=== PATIENT | male | born 1950 | race Caucasian/White ===

== ENCOUNTER 2017-06-22 18:15 | Emergency (ER) | payer MEDICARE ==
[2017-06-22] MEDS ORDERED: Diphtheria,Pertussis(Acell),Tetanus Vaccine 0.5 ML Syringe IM ONE (18:23)
[2017-06-22] MEDS ORDERED: Lidocaine 1% with EPINEPHrine 1:100,000 20 ML MDV INJECT ONE (18:23)
--- NOTE | 2017-06-22 18:25 | EDM.PDOC ---
ED HPI GENERAL MEDICAL PROBLEM - General Chief Complaint: Head Injury Stated Complaint: head laceration Time Seen by Provider: 06/22/17 18:23 Source of Information: Reports: Patient History Limitations: Reports: No Limitations - History of Present Illness INITIAL COMMENTS - FREE TEXT/NARRATIVE: This patient is a 67 year old male that presents to the ER. Patient reports he was outside moving a gate when an suzy statue hit him in the front of the head. Patient reports this occurred about 2:30pm today. He reports he was not going to come in, but the wound kept bleeding and he thinks he needs the wound closed. Patient is alert and oriented. Denies any other injury. Patient denies any pain. Patient denies loc, n, v, vision changes, neck pain, headache. Will not CT at this time. Patient not on blood thinners. Stable. Onset: Today Onset Date: 06/22/17 Onset Time: 14:30 Location: Reports: Head Improves with: Reports: None Worsens with: Reports: None Associated Symptoms: Reports: No Other Symptoms. Denies: Confusion, Chest Pain , Cough, cough w sputum, Diaphoresis, Fever/Chills, Headaches, Loss of Appetite , Malaise, Nausea/Vomiting, Rash, Seizure, Shortness of Breath, Syncope, Weakness - Related Data Allergies Allergy/AdvReac Type Severity Reaction Status Date / Time No Known Allergies Allergy Verified 06/22/17 18:21 Home Meds: Home Meds Insulin Degludec [Tresiba Flextouch U-100] 15 - 23 units SUBCUT BEDTIME [History] atorvaSTATin Calcium [Atorvastatin Calcium] 40 mg PO DAILY 06/22/17 [History] metFORMIN HCl [Metformin HCl] 1,000 mg PO BID 06/22/17 [History] ED ROS GENERAL - Review of Systems Review Of Systems: See Below Constitutional: Reports: No Symptoms HEENT: Reports: No Symptoms Respiratory: Reports: No Symptoms Cardiovascular: Reports: No Symptoms Endocrine: Reports: No Symptoms GI/Abdominal: Reports: No Symptoms : Reports: No Symptoms Musculoskeletal: Reports: No Symptoms Skin: Reports: Wound (right frontal head) Neurological: Reports: No Symptoms Psychiatric: Reports: No Symptoms Hematologic/Lymphatic: Reports: No Symptoms Immunologic: Reports: No Symptoms ED EXAM, HEAD INJURY - Physical Exam Exam: See Below Exam Limited By: No Limitations General Appearance: Alert, WD/WN, No Apparent Distress Head: Normocephalic, Scalp Lacerations. No: Scalp Swelling, Scalp Abrasions, Scalp Ecchymosis, Scalp Hematoma, Scalp Tenderness, Active Bleeding, Urias's Sign, Flap, Facial Abrasions, Facial Ecchymosis, Facial Lacerations, Facial Swelling, Sinus Tenderness, Facial Tenderness, Raccoon Eyes Nexus Criteria: No: Posterior, Midline Cervical Tenderness, Evidence of Intoxication, Altered Level of Consciousness, Focal Neurological Deficit, Painful Distraction Injuries Eyes: Bilateral Eye: EOMI, Normal Inspection, PERRL Ears: Normal External Exam, Normal Canal, Hearing Grossly Normal, Normal TMs Nose: Normal Inspection, Normal Mucousa, No Blood Throat/Mouth: Normal Inspection, Normal Lips, Normal Teeth, Normal Gums, Normal Oropharynx, Normal Voice, No Airway Compromise Neck: Non-Tender, Full Range of Motion, Normal Alignment, Normal Inspection Respiratory: No Respiratory Distress, Lungs Clear, Normal Breath Sounds, No Accessory Muscle Use Cardiovascular: Normal Peripheral Pulses, Regular Rate, Rhythm, No Edema, No Gallop, No JVD, No Murmur, No Rub Back Exam: Normal Inspection, Full Range of Motion. No: Muscle Spasm, Paraspinal Tenderness, Vertebral Tenderness Extremities: Normal Inspection, Normal Range of Motion, Non-Tender, No Pedal Edema, Normal Capillary Refill Neurologic: batter depositor II-XII nml As Tested, No Motor/Sensory Deficits, Alert, Normal Mood/Affect, Oriented x 3 Skin: Normal Color, Warm/Dry - [place] Coma Score Best Eye Response ([place]): (4) Open Spontaneously Best Verbal Response ([place]): (5) Oriented Best Motor Response (Ajay): (6) Obeys Commands ED LACERATION/WOUND & ANNIE PROC - Laceration/Wound Repair Right Midline Head Appearance: Superficial, Clean Distal NVT: Neuro & Vascular Intact, No Tendon Injury Anesthetic Type: Local Local Anesthesia - Lidocaine (Xylocaine): 1% with EPI Local Anesthetic Volume: 2cc Skin Prep: Chlorhexidine (Hibiciens) Exploration/Debridement/Repair: Wound Explored, In a Bloodless Field, Explored to Base, No Foreign Material Found Closed with: [place] # of Sutures: 6 ([place]) Tetanus Status Addressed: Yes Complications: No Course - Vital Signs Last Recorded V/S: Last Vital Signs Temp 95.7 F 06/22/17 18:18 Pulse 53 L 06/22/17 18:18 Resp 16 06/22/17 18:18 BP 134/72 06/22/17 18:18 Pulse Ox 99 06/22/17 18:18 - Orders/Labs/Meds Orders: Active Orders 24 hr Category Date Time Status Vaccines to be Administered [RC] PER UNIT ROUTINE Care 06/22/17 18:23 Active Meds: Medications Discontinued Medications Generic Name Dose Route Start Last Admin Trade Name Nanette PRN Reason Stop Dose Admin Diphtheria/Tetanus/Acell Pertussis 0.5 ml 06/22/17 18:23 Adacel IM 06/22/17 18:24 .ONCE ONE Lidocaine/Epinephrine 20 ml 06/22/17 18:23 Xylocaine 1% With Epinephrine 1:100,000 INJECT 06/22/17 18:24 ONETIME ONE Departure - Departure Time of Disposition: 18:44 Disposition: Home, Self-Care 01 Condition: Good Clinical Impression: Laceration - Discharge Information Instructions: Laceration Care, Adult, Head Injury, Adult, [id number] Referrals: Kashif Burrell MD [Primary Care Provider] - Forms: ED Department Discharge Additional Instructions: Followup with your primary care provider in 7-10 days for staple removal Return to the ER for worsening of condition or any emergent concerns Wash the area gently with soap and water, rinse, pat dry. Keep clean. - My Orders Last 24 Hours: My Active Orders 06/22/17 18:23 Vaccines to be Administered [RC] PER UNIT ROUTINE - Assessment/Plan Last 24 Hours: My Active Orders 06/22/17 18:23 Vaccines to be Administered [RC] PER UNIT ROUTINE Plan: PLEASE SEE RN NOTE FOR PFSH.
== END 2017-06-22 18:55 | disposition home or self-care (01) ==
LOC: CC.ED 18:15
DX: S01.01XA Laceration without foreign body of scalp, initial encounter (principal); W22.8XXA Striking against or struck by other objects, initial encounter; Z23 Encounter for immunization
CPT/HCPCS: 12002; 90471; 90715; 99282; 99283

== ENCOUNTER 2017-12-24 21:38 | Observation (INO) | payer MEDICARE ==
[2017-12-24] MEDS ORDERED: Ondansetron 4 MG/2 ML SDV IVPUSH STA (21:41)
[2017-12-24] MEDS ORDERED: Lactated Ringers 1,000 ML IV SCH (21:45)
[2017-12-24 22:07] LABS: CHLORIDE,CL 99 mEq/L (98-106); SODIUM,NA 137 mEq/L (136-145)
--- NOTE | 2017-12-24 22:17 | EDM.PDOC ---
ED HPI GENERAL MEDICAL PROBLEM - General Chief Complaint: Gastrointestinal Problem Stated Complaint: stomach pain Time Seen by Provider: 12/24/17 21:45 Source of Information: Reports: Patient History Limitations: Reports: No Limitations - History of Present Illness INITIAL COMMENTS - FREE TEXT/NARRATIVE: Keaton is a 67 yo male who presents to the ER with complaints of stomach pains that started this morning. He states he was just going to leave for [place] and started getting cramps in his stomach. Admits he has had this pain before and it will usually go away on its own. States it will go away typically after he vomits but has been unable to vomit today. Has tried a few times. He states he has a known history of malrotation that was fixed quite a few years ago by Dr. Tomas in [place]. States he underwent an exploratory surgery by Dr. Dvaila in [place] prior to seeing Dr. Tomas. He states he was always told to take milk of magnesia when this happens so patient did so but has not had any relief. He states he had a normal bowel movement today after taking a laxative. He states he had his appendix removed but still has his gallbladder. Location: Reports: Abdomen Quality: Reports: Sharp, Stabbing Associated Symptoms: Reports: Loss of Appetite, Nausea/Vomiting (nausea unable to vomit). Denies: Fever/Chills Abdominal Pain Score (Numeric/FACES): 2 - Related Data Allergies Allergy/AdvReac Type Severity Reaction Status Date / Time No Known Allergies Allergy Verified 12/24/17 21:43 Home Meds: Home Meds Insulin Degludec [Tresiba Flextouch U-100] 15 - 23 units SUBCUT BEDTIME [History] atorvaSTATin Calcium [Atorvastatin Calcium] 40 mg PO DAILY 06/22/17 [History] metFORMIN HCl [Metformin HCl] 1,000 mg PO BID 06/22/17 [History] Past Medical History Cardiovascular History: Reports: High Cholesterol Gastrointestinal History: Reports: Other (See Below) Other Gastrointestinal History: MALROTATION OF INTESTINES Endocrine/Metabolic History: Reports: Diabetes, Type II - Past Surgical History GI Surgical History: Reports: Appendectomy, Other (See Below) Other GI Surgeries/Procedures: GASTRIC SURGERY FOR MALROTATION Social & Family History - Tobacco Use Smoking Status *Q: Never Smoker Second Hand Smoke Exposure: No - Caffeine Use Caffeine Use: Reports: Coffee ED ROS GENERAL - Review of Systems Review Of Systems: See Below Constitutional: Denies: Fever, Chills HEENT: Reports: No Symptoms Respiratory: Reports: No Symptoms Cardiovascular: Reports: No Symptoms GI/Abdominal: Reports: Abdominal Pain, Decreased Appetite, Nausea. Denies: Bloody Stool, Constipation, Diarrhea, Vomiting : Reports: No Symptoms Musculoskeletal: Reports: No Symptoms Skin: Reports: No Symptoms Neurological: Reports: No Symptoms ED EXAM, GI/ABD - Physical Exam Exam: See Below Exam Limited By: No Limitations General Appearance: Alert, Mild Distress Ears: Normal External Exam, Normal Canal, Hearing Grossly Normal, Normal TMs Nose: Normal Inspection, Normal Mucosa, No Blood Throat/Mouth: Normal Inspection, Normal Lips, Normal Teeth, Normal Gums, Normal Oropharynx, Normal Voice, No Airway Compromise Head: Atraumatic, Normocephalic Neck: Normal Inspection, Supple Respiratory/Chest: No Respiratory Distress, Lungs Clear, Normal Breath Sounds, No Accessory Muscle Use Cardiovascular: Regular Rate, Rhythm, No Edema, No Murmur GI/Abdominal Exam: Tender, Abnormal Bowel Sounds (hypoactive). No: Guarding, Rigid, Hernia Back Exam: No: CVA Tenderness (L), CVA Tenderness (R) Extremities: Normal Inspection, No Pedal Edema Neurological: Alert, Oriented, Normal Cognition Psychiatric: Normal Affect, Normal Mood Skin Exam: Warm, Dry, Intact, Normal Color, No Rash Course - Vital Signs Last Recorded V/S: Last Vital Signs Temp 97.6 F 12/24/17 21:39 Pulse 64 12/24/17 21:39 Resp 18 12/24/17 21:39 BP 142/87 H 12/24/17 21:39 Pulse Ox - Orders/Labs/Meds Orders: Active Orders 24 hr Category Date Time Status Patient Status Manage Transfer [TRANSFER] Routine ADT 12/24/17 23:30 Ordered Abdomen 2V AP Flat Upright [CR] Stat Exams 12/24/17 21:40 Taken UA W/MICROSCOPIC [URIN] Stat Lab 12/24/17 22:01 Ordered Resuscitation Status Routine Resus Stat 12/24/17 23:33 Ordered Labs: Laboratory Tests 12/24/17 12/24/17 12/24/17 Range/Units 21:52 21:52 22:01 WBC 9.7 (5.0-10.0) 10^3/uL RBC 4.89 (4.50-6.00) 10^6/uL Hgb 14.4 (14.0-18.0) g/dL Hct 41.8 (40.0-54.0) % MCV 85.5 (82.0-94.0) fL MCH 29.4 (27.0-32.0) pg MCHC 34.4 (33.0-38.0) g/dL RDW Coeff of [place] 12.1 (11.0-15.0) % Plt Count 185 (150-400) 10^3/uL Neut % (Auto) 70.2 (35-85) % Lymph % (Auto) 18.4 (10-55) % [place] % (Auto) 10.1 (0-16) % Eos % (Auto) 1.0 (0-5) % Baso % (Auto) 0.3 (0-3) % Neut # (Auto) 6.81 (1.80-7.00) 10^3/uL Lymph # (Auto) 1.79 (1.00-4.80) 10^3/uL [place] # (Auto) 0.98 H (0.00-0.80) 10^3/uL Eos # (Auto) 0.10 (0.00-0.45) 10^3/uL Baso # (Auto) 0.03 10^3/uL Sodium 137 (136-145) mEq/L Potassium 3.9 (3.5-5.0) mEq/L Chloride 99 (98-106) mEq/L Carbon Dioxide 26 (21-32) mmol/L BUN 15 (7-18) mg/dL Creatinine 0.8 (0.7-1.3) mg/dL Est Cr Clr Drug Dosing TNP Estimated GFR (MDRD) > 60 (>=60) mL/min Glucose 158 H D (75-99) mg/dL Calcium 8.8 (8.4-10.1) mg/dL Magnesium 1.8 (1.8-2.4) mg/dL Total Bilirubin 0.7 (0.0-1.0) mg/dL AST 19 (15-37) U/L ALT 22 (12-78) U/L Alkaline Phosphatase 209 H (46-116) U/L C-Reactive Protein 0.2 (0.2-0.8) mg/dL Total Protein 6.6 (6.4-8.2) g/dL Albumin 3.3 L (3.4-5.0) g/dL Amylase 35 (25-115) U/L Urine Color Yellow (YELLOW) Urine Appearance Clear (CLEAR) Urine pH 5.5 (4.5-8.0) Ur Specific [place] 1.020 (1.003-1.020) Urine Protein Negative (NEGATIVE) mg/dL Urine Glucose (UA) Negative (NEGATIVE) mg/dL Urine Ketones Negative (NEGATIVE) mg/dL Urine Occult Blood Negative (NEGATIVE) Urine Nitrite Negative (NEGATIVE) Urine Bilirubin Negative (NEGATIVE) Urine Urobilinogen 1.0 (0.2-1.0) EU/dL Ur Leukocyte Esterase Negative (NEGATIVE) Urine RBC Not seen (0-5) /HPF Urine WBC 0-5 (0-5) /HPF Ur Epithelial Cells Few H (NOT SEEN) /HPF Urine Mucus Moderate H (NOT SEEN) /HPF Meds: Medications Discontinued Medications Generic Name Dose Route Start Last Admin Trade Name Nanette PRN Reason Stop Dose Admin Lactated Ringer's 1,000 mls @ 250 mls/hr 12/24/17 21:45 12/24/17 22:17 Ringers, Lactated IV 250 mls/hr ASDIRECTED PROSPER Administration Sodium Chloride Confirm 12/24/17 22:39 Normal Saline Administered 12/24/17 22:40 Dose 1,000 mls @ as directed .ROUTE .STK-MED ONE Ondansetron HCl 4 mg 12/24/17 21:41 12/24/17 22:19 Zofran IVPUSH 12/24/17 21:42 4 mg NOW STA Administration Departure - Departure Time of Disposition: 22:45 Disposition: Refer to Observation Clinical Impression: Partial small bowel obstruction - Discharge Information Forms: ED Department Discharge - Problem List & Annotations (1) Partial small bowel obstruction SNOMED Code(s): 445275879 Code(s): K56.600 - PARTIAL INTESTINAL OBSTRUCTION, UNSPECIFIED TO CAUSE Status: Acute - Problem List Review Problem List Initiated/Reviewed/Updated: Yes - My Orders Last 24 Hours: My Active Orders 12/24/17 21:40 Abdomen 2V AP Flat Upright [CR] Stat 12/24/17 22:01 UA W/MICROSCOPIC [URIN] Stat 12/24/17 23:30 Patient Status Manage Transfer [TRANSFER] Routine 12/24/17 23:33 Resuscitation Status Routine - Assessment/Plan Admission H&P: Please use this note as an admission H&P Last 24 Hours: My Active Orders 12/24/17 21:40 Abdomen 2V AP Flat Upright [CR] Stat 12/24/17 22:01 UA W/MICROSCOPIC [URIN] Stat 12/24/17 23:30 Patient Status Manage Transfer [TRANSFER] Routine 12/24/17 23:33 Resuscitation Status Routine Plan: Consulted with Dr. Kashif Burrell who agreed with admission. We will admit to observation under Dr. Burrell's care. Will closely monitor and will be given IV fluids. Order written if any vomiting to insert NG tube to LIS with replacement of fluids ml for ml in am. Ray verbalized understanding and was in agreement. Transferred to floor in satisfactory condition.
[2017-12-24] MEDS ORDERED: Sodium Chloride 0.9% 1,000 ML ONE (22:39)
[2017-12-25] MEDS ORDERED: fentaNYL 100 MCG/2 ML SDV IVPUSH PRN (02:07)
[2017-12-25] MEDS ORDERED: Ondansetron 4 MG/2 ML SDV IV PRN (02:07)
[2017-12-25] MEDS ORDERED: Sodium Chloride 0.9% 1,000 ML IV SCH (02:07)
[2017-12-25] MEDS ORDERED: Enoxaparin 30 MG/0.3 ML Syringe SUBCUT SCH (02:07)
[2017-12-25] MEDS ORDERED: Sodium Chloride 0.9% 1,000 ML ONE (04:48)
[2017-12-25] MEDS ORDERED: Insulin Aspart 100 Units/ML 3 ML Pen SUBCUT SCH (08:00)
[2017-12-25 08:14] LABS: CHLORIDE,CL 105 mEq/L (98-106); SODIUM,NA 141 mEq/L (136-145)
--- NOTE | 2017-12-25 10:27 | DISCH ---
FINAL DIAGNOSIS: Abdominal pain secondary to partial small bowel obstruction. PROCEDURES: None. HISTORY OF PRESENT ILLNESS: A 67-year-old male, who presents to the ER yesterday with complaints of stomach pain that had started yesterday morning. He does have a history of partial small-bowel obstructions from past medical history of malrotation which he did have fixed by Dr. Tomas. The pain yesterday had started in the morning, it kind of progressed throughout the day. He did feel nauseated throughout the day, however, was unable to vomit. He states he has had multiple history of this in which he usually typically will throw up or have a bowel movement and symptoms did seem to subside. He does admit that he did have a normal bowel movement yesterday after taking a laxative that was given in the morning. LABORATORY DATA: CBC, CMP, amylase, magnesium, CRP, and urinalysis were grossly unremarkable yesterday. All laboratory work was stable. HOSPITAL COURSE: He has had an uneventful hospital stay. He has been doing quite well in the hospital. His vital signs have been stable. Repeat laboratory work this morning did show continued to be stable CBC and panel eight and he has not had any abdominal discomfort throughout the evening and it has subsided. He states he feels back to his normal self. He would like to be discharged home at this time. DISCHARGE MEDICATIONS: Resume all home medications. DISCHARGE INSTRUCTIONS: The diet as tolerated and activity as tolerated. May use magnesium citrate due to radiology findings did state that there is a large amount of stool present within the colon. However, again the radiologist read as a bowel gas pattern was nonobstructive. We will have him follow up with Dr. Kashif Burrell in next week for hospital recheck up. He was advised to return to the ER sooner. We did discuss diet into detail today as well. All questions were answered. The patient will be discharged in satisfactory condition. MARGARET/ARTIE /[id number]
== END 2017-12-25 09:44 | disposition home or self-care (01) ==
LOC: CC.ED 21:38 → CC.MS 22:45 → UNDOADMOB 22:45 → CC.ED 22:45 → CC.MS 23:33
PROVIDERS: ADMIT Physician Assistant Medical; ATTEND Family Medicine
DX: K56.600 Partial intestinal obstruction, unspecified as to cause (principal); E78.00 Pure hypercholesterolemia, unspecified; E11.9 Type 2 diabetes mellitus without complications; Z79.4 Long term (current) use of insulin; Z79.899 Other long term (current) drug therapy; Z90.49 Acquired absence of other specified parts of digestive tract
CPT/HCPCS: 36415; 74019; 80048; 80053; 81001; 82150; 82962; 83735; 85025; 86140; 96361; 96374; 99284; G0378; J2405; J7030; J7120

== ENCOUNTER → 2019-06-19 | Day surgery (SDC) | payer MEDICARE ==
[~2019-06-19] MED LIST: Lactated Ringers 1,000 ML IV SCH; Polyethylene Glycol 3350 Powder 17 GM Packet PO STA; Propofol 200 MG/20 ML SDV IV ONE
== END ==
LOC: CC.SDS 06:29
PROVIDERS: ATTEND Family Medicine
DX: Z12.11 Encounter for screening for malignant neoplasm of colon (principal); Z53.8 Procedure and treatment not carried out for other reasons
CPT/HCPCS: A9270; J7120; 00812; G0121; J2704

== ENCOUNTER → 2019-06-20 | Day surgery (SDC) | payer MEDICARE ==
[~2019-06-20] MED LIST changes: +Lactated Ringers 1,000 ML ONE; +Meperidine PF 50 MG/ML Syringe IV ONE; +Midazolam 1 MG/ML 2 ML SDV IV ONE; -Polyethylene Glycol 3350 Powder 17 GM Packet PO STA; -Propofol 200 MG/20 ML SDV IV ONE
--- NOTE | 2019-06-22 08:55 | OR ---
DATE OF OPERATION: 06/20/2019 PREOPERATIVE DIAGNOSIS: SCREENING COLONOSCOPY. POSTOPERATIVE DIAGNOSIS: SCREENING COLONOSCOPY. SURGEON: Kashif Burrell MD PROCEDURE: FULL-LENGTH COLONOSCOPY. ANESTHESIA: Conscious sedation with 6 mg Versed and 50 mg Demerol with continuous O2 sat monitoring and nurse assist. COMPLICATIONS: None. SPECIMEN: None. FINDINGS: 1. Normal full-length colonoscopy. 2. Minimal sigmoid diverticulosis. RECOMMENDATIONS: Followup colonoscopy in 10 years. INDICATIONS: The patient was seen for routine colonoscopy, it had been over 10 years since his last endoscopy. DESCRIPTION OF PROCEDURE: The patient was prepped and draped, placed in the left lateral decubitus position. A lubricated Olympus colonoscope was inserted and ultimately advanced to the cecum. 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 Nevertheless, we were able to get down into the cecal pouch. The patient's prep was marginal. We actually delayed his scope a day for a poor prep on his initial day of the procedure and there was still a lot of dark brown liquid stool. Most of these areas could be irrigated, some smaller lesions certainly may have been missed. Upon withdrawal throughout the entire length of the colon, I could find no polyps, masses, ulceration, or bleeding sites. No vascular abnormalities or signs of colitis with some very minimal sigmoid diverticulosis. Rectal vault was benign. Retroflexion in the rectum showed no anal lesions. Air was suctioned, scope removed without complication. FAVIO/ARTIE /[id number]
== END ==
LOC: CC.SDS 08:45
PROVIDERS: ATTEND Family Medicine
DX: Z12.11 Encounter for screening for malignant neoplasm of colon (principal); K57.30 Diverticulosis of large intestine without perforation or abscess without bleeding; Q43.3 Congenital malformations of intestinal fixation; E11.9 Type 2 diabetes mellitus without complications; E78.5 Hyperlipidemia, unspecified; K86.9 Disease of pancreas, unspecified; H91.90 Unspecified hearing loss, unspecified ear; N40.0 Benign prostatic hyperplasia without lower urinary tract symptoms; Z87.891 Personal history of nicotine dependence; Z79.4 Long term (current) use of insulin; Z79.899 Other long term (current) drug therapy
CPT/HCPCS: G0121; J2175; J2250; J7120

== ENCOUNTER 2020-02-13 12:08 | Emergency (ER) | payer MEDICARE ==
--- NOTE | 2020-02-13 12:40 | EDM.PDOC ---
ED HPI GENERAL MEDICAL PROBLEM - General Chief Complaint: General Stated Complaint: fall Time Seen by Provider: 02/13/20 12:36 Source of Information: Reports: Patient History Limitations: Reports: No Limitations - History of Present Illness INITIAL COMMENTS - FREE TEXT/NARRATIVE: This patient is a 69 year old male that presents to the ER. When I enter the ER, the patient is here and gives me a brief history. I then see the patient in radiology. I then initiated a trauma code based on the mechanism of injury and injury complaints. Trauma code protocol initiated with orders. A chest xray was performed. Patient is in gown, I removed for examination. Lab drawn for labs. Then, pants removed once patient returned back to ER and examined again. The patient reports that he was standing at the top of his 10 foot ladder. He reports he may have fell about 2 feet. Patient is near 6 feet tall, standing on a 10 foot ladder at its max height. Patient reports that he was cutting down a branch in a tree. He reports he heard the branch cracing, he was worried it would swing and hit his ladder. He reports he continued sawing though in hopes he could cut the branch before it swung back and hit the ladder. He reports that the large tree limb about as big around as his waist, swung back and hit the ladder knocking the ladder out from under him. He reports the branch hit him somewhere and he fell to the ground. The patient reports that he does not recall where he landed, or much else. The patient reports he fell to the ground, did not have LOC. The reports the son was there and saw it all. The reports the son said patient landed on his neck/head area. reports son said he did not have LOC. The patient reports that he has a headache, right wrist pain, and that his upper back hurts when he takes big deep breaths. Onset: Today Onset Date: 02/13/20 Onset Time: 11:15 Location: Reports: Head, Neck, Chest, Back Front/Back Body Image: 1 - laceration 2 - pain. Worse with Movement 3 - pain, tenderness, swelling Quality: Reports: Ache, Throbbing Severity: Moderate Improves with: Reports: Immobilization Worsens with: Reports: Movement Context: Reports: Trauma Associated Symptoms: Reports: Headaches. Denies: Confusion, Chest Pain, Cough, cough w sputum, Diaphoresis, Fever/Chills, Loss of Appetite, Malaise, Nausea/Vomiting, Rash, Seizure, Shortness of Breath, Syncope, Weakness Middle Back Pain Score (Numeric/FACES): 8 - Related Data Allergies Allergy/AdvReac Type Severity Reaction Status Date / Time No Known Allergies Allergy Verified 02/13/20 12:09 Home Meds: Home Meds Insulin Degludec [Tresiba Flextouch U-100] 12 units SUBCUT BEDTIME 06/22/17 [History] atorvaSTATin Calcium [Atorvastatin Calcium] 40 mg PO DAILY 06/22/17 [History] Insulin Aspart [NovoLOG] 2 unit SQ TID 06/16/19 [History] Past Medical History Cardiovascular History: Reports: High Cholesterol Gastrointestinal History: Reports: Other (See Below) Other Gastrointestinal History: MALROTATION OF INTESTINES Endocrine/Metabolic History: Reports: Diabetes, Type II - Past Surgical History GI Surgical History: Reports: Appendectomy, Other (See Below) Other GI Surgeries/Procedures: GASTRIC SURGERY FOR MALROTATION Social & Family History - Family History Family Medical History: Noncontributory - Tobacco Use Smoking Status *Q: Never Smoker - Caffeine Use Caffeine Use: Reports: Coffee ED ROS GENERAL - Review of Systems Review Of Systems: See Below Constitutional: Reports: No Symptoms HEENT: Reports: No Symptoms Respiratory: Reports: No Symptoms. Denies: Shortness of Breath, Wheezing, Pleuritic Chest Pain, Cough, Sputum Cardiovascular: Denies: Chest Pain, Dyspnea on Exertion, Edema, Lightheadedness, Palpitations, Syncope Endocrine: Reports: No Symptoms GI/Abdominal: Reports: No Symptoms. Denies: Abdominal Pain, Nausea, Stool Incontinence, Vomiting : Reports: No Symptoms Musculoskeletal: Reports: Neck Pain, Shoulder Pain (posterior into thoracic), Back Pain (thoracic upper central/right/left), Joint Pain (right wrist), Joint Swelling (right wrist), Muscle Pain. Denies: Leg Pain, Foot Pain Skin: Reports: Wound (scalp). Denies: Bruising Neurological: Reports: Headache. Denies: Confusion, Dizziness, Numbness, Seizure, Syncope, Tingling, Tremors, Trouble Speaking, Difficulty Walking, Change in Speech, Gait Disturbance Psychiatric: Reports: No Symptoms Hematologic/Lymphatic: Reports: No Symptoms Immunologic: Reports: No Symptoms ED EXAM, GENERAL - Physical Exam Exam: See Below Exam Limited By: No Limitations General Appearance: Alert, WD/WN, No Apparent Distress Eye Exam: Bilateral Eye: EOMI, Normal Inspection, PERRL Ears: Normal External Exam, Normal Canal, Hearing Grossly Normal, Normal TMs Ear Exam: Bilateral Ear: Auricle Normal, Canal Normal, TM normal Nose: Normal Inspection, Normal Mucosa, No Blood Throat/Mouth: Normal Inspection, Normal Lips, Normal Teeth, Normal Gums, Normal Oropharynx, Normal Voice, No Airway Compromise Head: Atraumatic, Normocephalic. No: Facial Swelling, Facial Tenderness, Sinus Tenderness Neck: Normal Inspection, Supple, Full Range of Motion, Tender Lateral (right and left), Other (no Cervical stepoffs. C-Collar placed. ROM intact post c-collar clearance and removal post ct.). No: Limited Range of Motion, Tender Midline Respiratory/Chest: No Respiratory Distress, Lungs Clear, Normal Breath Sounds, No Accessory Muscle Use, Chest Non-Tender. No: Respiratory Distress, Decreased Breath Sounds, Stridor, Pleural Rub, Accessory Muscle Use, Retractions, Spli nting, Prolonged Expiration Cardiovascular: Normal Peripheral Pulses, Regular Rate, Rhythm, No Edema, No Gallop, No JVD, No Murmur, No Rub Peripheral Pulses: 2+: Brachial (L), Brachial (R), Radial (L), Radial (R), Posterior Tibial (L), Posterior Tibial (R), Dorsalis Pedis (L), Dorsalis Pedis (R) GI/Abdominal: Soft, Non-Tender, Other (old surgical scar) Back Exam: Normal Inspection, Full Range of Motion, Paraspinal Tenderness (mid/right/left upper thoracic), Other (No lumbar complaints at all on exam or ROS. ROM intact without pain or tenderness. ). No: CVA Tenderness (L), CVA Tenderness (R), Decreased Range of Motion, Vertebral Tenderness Extremities: Normal Range of Motion, Normal Capillary Refill, Other (Right wrist pain, tenderness, swelling at the right wrist distal radius side. Pulses +2, cap refill < 2 sec, sensory/motor function intact. Neurovascular intact. ). No: Leg Pain, Limited Range of Motion Neurological: Alert, Oriented, CN II-XII Intact, Normal Cognition, Normal Gait (ambulating in department without difficulty), No Motor/Sensory Deficits. No: Confused, Memory Loss Recent Events Psychiatric: Normal Affect, Normal Mood Skin Exam: Warm, Dry, Normal Color, No Rash, Wound/Incision (scalp small abrasion. Not able for suture.) ED GENERAL MEDICAL PROCEDURES - Splinting Right Upper Extremity Pre-procedure NV status: Normal Post-procedure NV status: Normal Splint Material: Fiberglass Splint Design: Sugar Tong Applied & Form Fitted By: Provider Provider Post-Splint Application NV Check: NV Status Normal, Good Position Complications: No Course - Vital Signs Last Recorded V/S: Last Vital Signs Temp 97.2 F 02/13/20 12:24 Pulse 62 02/13/20 12:24 Resp 18 02/13/20 12:24 BP 135/73 02/13/20 12:24 Pulse Ox 99 02/13/20 12:24 - Orders/Labs/Meds Orders: Active Orders 24 hr Category Date Time Status Vaccines to be Administered [RC] PER UNIT ROUTINE Care 02/13/20 12:41 Active Cervical Spine 2V or 3V [CR] Stat Exams 02/13/20 12:16 Stop Req Cervical Spine wo Cont [CT] Stat Exams 02/13/20 12:36 Taken Chest 2V [CR] Stat Exams 02/13/20 12:15 Taken Head wo Cont [CT] Stat Exams 02/13/20 12:36 Taken Thoracic Spine wo Cont [CT] Stat Exams 02/13/20 12:40 Taken Wrist 2V Rt [CR] Stat Exams 02/13/20 12:15 Taken Labs: Laboratory Tests 02/13/20 02/13/20 02/13/20 Range/Units 12:33 12:35 12:35 WBC 6.7 (5.0-10.0) 10^3/uL RBC 4.48 L (4.50-6.00) 10^6/uL Hgb 13.6 L (14.0-18.0) g/dL Hct 40.3 (40.0-54.0) % MCV 90.0 (82.0-94.0) fL MCH 30.4 (27.0-32.0) pg MCHC 33.7 (33.0-38.0) g/dL RDW Coeff of [place] 12.3 (11.0-15.0) % Plt Count 175 (150-400) 10^3/uL Neut % (Auto) 49.4 (35-85) % Lymph % (Auto) 38.0 (10-55) % [place] % (Auto) 9.5 (0-16) % Eos % (Auto) 2.5 (0-5) % Baso % (Auto) 0.6 (0-3) % Neut # (Auto) 3.33 (1.80-7.00) 10^3/uL Lymph # (Auto) 2.56 (1.00-4.80) 10^3/uL [place] # (Auto) 0.64 (0.00-0.80) 10^3/uL Eos # (Auto) 0.17 (0.00-0.45) 10^3/uL Baso # (Auto) 0.04 10^3/uL PT 10.4 (9.7-12.3) SEC INR 1.03 (0.92-1.18) Sodium (136-145) mEq/L Potassium (3.5-5.0) mEq/L Chloride (98-106) mEq/L Carbon Dioxide (21-32) mmol/L BUN (7-18) mg/dL Creatinine (0.7-1.3) mg/dL Est Cr Clr Drug Dosing mL/min Estimated GFR (MDRD) (>=60) mL/min Glucose (75-99) mg/dL Lactic Acid (0.4-2.0) mmol/L Calcium (8.4-10.1) mg/dL Total Bilirubin (0.0-1.0) mg/dL AST (15-37) U/L ALT (12-78) U/L Alkaline Phosphatase (46-116) U/L Total Protein (6.4-8.2) g/dL Albumin (3.4-5.0) g/dL Amylase (25-115) U/L Urine Color Yellow (YELLOW) Urine Appearance Clear (CLEAR) Urine pH 5.0 (4.5-8.0) Ur Specific [place] >= 1.030 H (1.003-1.020) Urine Protein 30 H (NEGATIVE) mg/dL Urine Glucose (UA) Negative (NEGATIVE) mg/dL Urine Ketones Negative (NEGATIVE) mg/dL Urine Occult Blood Negative (NEGATIVE) Urine Nitrite Negative (NEGATIVE) Urine Bilirubin Negative (NEGATIVE) Urine Urobilinogen 0.2 (0.2-1.0) EU/dL Ur Leukocyte Esterase Negative (NEGATIVE) Urine RBC Not seen (0-5) /HPF Urine WBC Not seen (0-5) /HPF Ur Epithelial Cells Occasional H (NOT SEEN) /HPF Urine Mucus Moderate H (NOT SEEN) /HPF 02/13/20 02/13/20 Range/Units 12:35 12:35 WBC (5.0-10.0) 10^3/uL RBC (4.50-6.00) 10^6/uL Hgb (14.0-18.0) g/dL Hct (40.0-54.0) % MCV (82.0-94.0) fL MCH (27.0-32.0) pg MCHC (33.0-38.0) g/dL RDW Coeff of [place] (11.0-15.0) % Plt Count (150-400) 10^3/uL Neut % (Auto) (35-85) % Lymph % (Auto) (10-55) % [place] % (Auto) (0-16) % Eos % (Auto) (0-5) % Baso % (Auto) (0-3) % Neut # (Auto) (1.80-7.00) 10^3/uL Lymph # (Auto) (1.00-4.80) 10^3/uL [place] # (Auto) (0.00-0.80) 10^3/uL Eos # (Auto) (0.00-0.45) 10^3/uL Baso # (Auto) 10^3/uL PT (9.7-12.3) SEC INR (0.92-1.18) Sodium 146 H (136-145) mEq/L Potassium 4.1 (3.5-5.0) mEq/L Chloride 109 H (98-106) mEq/L Carbon Dioxide 30 (21-32) mmol/L BUN 18 (7-18) mg/dL Creatinine 1.2 (0.7-1.3) mg/dL Est Cr Clr Drug Dosing 60.83 mL/min Estimated GFR (MDRD) > 60 (>=60) mL/min Glucose 114 H (75-99) mg/dL Lactic Acid 1.1 (0.4-2.0) mmol/L Calcium 8.7 (8.4-10.1) mg/dL Total Bilirubin 0.9 (0.0-1.0) mg/dL AST 52 H (15-37) U/L ALT 55 (12-78) U/L Alkaline Phosphatase 379 H (46-116) U/L Total Protein 6.9 (6.4-8.2) g/dL Albumin 3.6 (3.4-5.0) g/dL Amylase 47 (25-115) U/L Urine Color (YELLOW) Urine Appearance (CLEAR) Urine pH (4.5-8.0) Ur Specific [place] (1.003-1.020) Urine Protein (NEGATIVE) mg/dL Urine Glucose (UA) (NEGATIVE) mg/dL Urine Ketones (NEGATIVE) mg/dL Urine Occult Blood (NEGATIVE) Urine Nitrite (NEGATIVE) Urine Bilirubin (NEGATIVE) Urine Urobilinogen (0.2-1.0) EU/dL Ur Leukocyte Esterase (NEGATIVE) Urine RBC (0-5) /HPF Urine WBC (0-5) /HPF Ur Epithelial Cells (NOT SEEN) /HPF Urine Mucus (NOT SEEN) /HPF Meds: Medications Discontinued Medications Generic Name Dose Route Start Last Admin Trade Name Freq PRN Reason Stop Dose Admin Diphtheria/Tetanus/Acell Pertussis 0.5 ml 02/13/20 12:41 02/13/20 12:59 Adacel IM 02/13/20 12:42 Not Given .ONCE ONE Morphine Sulfate 4 mg 02/13/20 15:08 Morphine IVPUSH 02/13/20 15:09 ONETIME ONE Neomycin/Polymyxin/Bacitracin 1 each 02/13/20 13:41 02/13/20 13:59 Triple Antibiotic Oint TOP 02/13/20 13:42 1 each ONETIME ONE Administration Ondansetron HCl 4 mg 02/13/20 15:08 Zofran IVPUSH 02/13/20 15:09 NOW STA - Radiology Interpretation Free Text/Narrative:: Right wrist: Distal comminuted radius fracture. no dislocation, no fb. CXR: no pneumo, no hemothorax. 1st ribs fracture left and right CT Head: 1333: No intracranial abnormality Remaining CTs 1352pm: Discussed with radiologist. Cervical does not see fractures, however there is a lot of motion artifact and can not be excluded. C- Collar stays in place. Thoracic shows T2 unstable fracture vertebral body, left facet, posterior elements, T4 fracture. CT Results Date: 02/13/20 CT Results Time: 13:33 - Re-Assessments/Exams Free Text/Narrative Re-Assessment/Exam: 02/13/20 13:00 TDAP UTD from 2017. Patient while on CT table, started having more upper middle back pain with laying down, T-spine CT added while patient on ct table. 02/13/20 13:07 Patient was offered pain medication. He has refused this. He reports his pain is a 2/10 in the middle back. 02/13/20 14:07 I called and spoke to Dr. Moulton ER physician at [facility] about this patient. He has accepted the patient transfer. The patient continues to refuse pain medication. The patient denies any numbness, tingling, loc, dizziness, loss of sensations. I explained transfer to the patient. The patient wants to drive himself to [place]. I educated him, this is not a good idea. Patient then has agre ed to transfer ground ambulance. Will transfer ALS ground due to multiple fractures and possible pain medication need in route. 02/13/20 14:16 [facility] ambulance reports they do not transfer capabilities. [facility] does not either for several hours. [facility] also not available at this time. W larisa for [facility] response. 02/13/20 14:29 [facility] is not available for transfer. [facility] ambulance reports they do have a public transit bus driver. If we can find a nurse to go with patient or someone for 911s. RN will attempt to find. 02/13/20 14:48 [facility] not able to find another person for transfer. We will fly. Patient has agreed to flight. 02/13/20 15:08 Flight has called back. 50 minutes. Patient now will take pain medication. Departure - Departure Time of Disposition: 14:27 Disposition: DC/Tfer to Acute Hospital 02 Condition: Serious Clinical Impression: Multiple rib fractures involving first rib T2 vertebral fracture Qualifiers: Encounter type: initial encounter Fracture type: closed Fracture morphology: burst- unstable Qualified Code(s): S22.022A - Unstable burst fracture of second thoracic vertebra, initial encounter for closed fracture T4 vertebral fracture Qualifiers: Encounter type: initial encounter Fracture type: closed Fracture morphology: unspecified fracture morphology Qualified Code(s): S22.049A - Unspecified fracture of fourth thoracic vertebra, initial encounter for closed fracture Scalp abrasion Qualifiers: Encounter type: initial encounter Qualified Code(s): S00.01XA - Abrasion of scalp, initial encounter Distal radius fracture, right Qualifiers: Encounter type: initial encounter Fracture type: closed Fracture morphology: other fracture Qualified Code(s): S52.591A - Other fractures of lower end of right radius, initial encounter for closed fracture - Discharge Information *PRESCRIPTION DRUG MONITORING PROGRAM REVIEWED*: Not Applicable *COPY OF PRESCRIPTION DRUG MONITORING REPORT IN PATIENT AZAM: Not Applicable Referrals: Kashif Burrell MD [Primary Care Provider] - Forms: ED Department Discharge Sepsis Event Note (ED) - Evaluation Sepsis Screening Result: No Definite Risk - Focused Exam Vital Signs: Vital Signs Temp Pulse Resp BP Pulse Ox 02/13/20 12:24 97.2 F 62 18 135/73 99 - My Orders Last 24 Hours: My Active Orders 02/13/20 12:15 Chest 2V [CR] Stat Wrist 2V Rt [CR] Stat 02/13/20 12:16 Cervical Spine 2V or 3V [CR] Stat 02/13/20 12:36 Cervical Spine wo Cont [CT] Stat Head wo Cont [CT] Stat 02/13/20 12:40 Thoracic Spine wo Cont [CT] Stat 02/13/20 12:41 Vaccines to be Administered [RC] PER UNIT ROUTINE - Assessment/Plan Last 24 Hours: My Active Orders 02/13/20 12:15 Chest 2V [CR] Stat Wrist 2V Rt [CR] Stat 02/13/20 12:16 Cervical Spine 2V or 3V [CR] Stat 02/13/20 12:36 Cervical Spine wo Cont [CT] Stat Head wo Cont [CT] Stat 02/13/20 12:40 Thoracic Spine wo Cont [CT] Stat 02/13/20 12:41 Vaccines to be Administered [RC] PER UNIT ROUTINE Plan: PLEASE SEE RN NOTE FOR PFS This patient is being transferred to [facility]. The risk vs benefits explained to the patient. He has accepted the transfer. Risk of transfer are crash, paralysis, worsening of condition, pain, . The risk of staying in [facility] is , pain, worsening of condition. The benefits of transfer are higher level of care, trauma center, neurosurgeon consult, orthopedic consult. The benefits of staying in [facility] are close to home.
[2020-02-13] MEDS ORDERED: Diphtheria,Pertussis(Acell),Tetanus Vaccine 0.5 ML Syringe IM ONE (12:41)
[2020-02-13 12:51] LABS: CHLORIDE,CL 109 mEq/L (98-106); SODIUM,NA 146 mEq/L (136-145)
[2020-02-13] MEDS ORDERED: Bacitracin/Neomycin/Polymyxin B Oint 0.9 GM U/D Packet TOP ONE (13:41)
[2020-02-13] MEDS ORDERED: Morphine 4 MG/ML VIAL IVPUSH ONE (15:08)
[2020-02-13] MEDS ORDERED: Ondansetron 4 MG/2 ML SDV IVPUSH STA (15:08)
== END 2020-02-13 16:00 ==
LOC: CC.ED 12:08
DX: S22.029A Unspecified fracture of second thoracic vertebra, initial encounter for closed fracture (principal); S22.049A Unspecified fracture of fourth thoracic vertebra, initial encounter for closed fracture; S52.501A Unspecified fracture of the lower end of right radius, initial encounter for closed fracture; S52.611A Displaced fracture of right ulna styloid process, initial encounter for closed fracture; S22.31XA Fracture of one rib, right side, initial encounter for closed fracture; S22.32XA Fracture of one rib, left side, initial encounter for closed fracture; S00.01XA Abrasion of scalp, initial encounter; E78.00 Pure hypercholesterolemia, unspecified; E11.9 Type 2 diabetes mellitus without complications; Z79.4 Long term (current) use of insulin; Z79.899 Other long term (current) drug therapy; W11.XXXA Fall on and from ladder, initial encounter
CPT/HCPCS: 29125; 36415; 70450; 71046; 72125; 72128; 73100; 80053; 81001; 82150; 83605; 85025; 85610; 96374; 96375; 99283; 99285; J2270; J2405

== ENCOUNTER → 2023-03-01 | Day surgery (SDC) | payer MEDICARE ==
[~2023-03-01] MED LIST changes: -Lactated Ringers 1,000 ML IV SCH; -Lactated Ringers 1,000 ML ONE; -Meperidine PF 50 MG/ML Syringe IV ONE; -Midazolam 1 MG/ML 2 ML SDV IV ONE; +Propofol 200 MG/20 ML SDV ONE; +ePHEDrine 50 MG/ML SDV ONE; +fentaNYL 50 MCG/ML SDV ONE
[2023-03-01] MEDS: Lactated Ringers 1,000 ML IV SCH (07:51)
[2023-03-01 09:11] VITALS: BP 117/63; PULSE 57
== END ==
LOC: CC.SDS 07:20
PROVIDERS: ATTEND Family Medicine
DX: K57.30 Diverticulosis of large intestine without perforation or abscess without bleeding (principal); E11.9 Type 2 diabetes mellitus without complications; Q45.3 Other congenital malformations of pancreas and pancreatic duct; N40.0 Benign prostatic hyperplasia without lower urinary tract symptoms; E78.5 Hyperlipidemia, unspecified; Z79.4 Long term (current) use of insulin; Z79.899 Other long term (current) drug therapy
CPT/HCPCS: 00811; 99100; J2704; J3010; J3490; J7120

== ENCOUNTER 2024-02-02 21:10 | Emergency (ER) | payer MEDICARE ==
[2024-02-02] MEDS: HYDROmorphone 1 MG/ML Syringe IVPUSH ONE (21:33)
[2024-02-02] MEDS: Iopamidol 755 Mg/ML 100 ML Bottle IVPUSH ONE (21:55)
[2024-02-02 22:14] LABS: BASOPHILS ABSOLUTE AUTO 0.05 10^3/uL (0.00-0.50); BASOPHILS PERCENT AUTO 0.7 % (0-1); EOSINOPHILS ABSOLUTE AUTO 0.09 10^3/uL (0.00-1.50); EOSINOPHILS PERCENT AUTO 1.3 % (0-6); HEMATOCRIT 37.5 % (42.0-52.0); HEMOGLOBIN 12.3 g/dL (14.0-18.0); IMMATURE GRAN ABSOLUTE AUTO 0.01 10^3/uL (0.00-0.49); IMMATURE GRAN PERCENT AUTO 0.1 % (0.0-4.9); LYMPHOCYTES ABSOLUTE AUTO 1.17 10^3/uL (0.60-5.00); LYMPHOCYTES PERCENT AUTO 17.4 % (24-44); MEAN CORPUSCULAR HEMOGLOBIN 30.1 pg (27.0-32.0); MEAN CORPUSCULAR HGB CONC 32.8 g/dL (32.0-36.0); MEAN CORPUSCULAR VOLUME 91.7 fL (83.0-97.0); MONOCYTES ABSOLUTE AUTO 0.75 10^3/uL (0.00-1.50); MONOCYTES PERCENT AUTO 11.1 % (0-10); NEUTROPHILS ABSOLUTE AUTO 4.66 x10^3/uL (1.80-8.00); NEUTROPHILS PERCENT AUTO 69.4 % (41-71); PLATELET COUNT,PLT 136 10^3/uL (150-400); RED BLOOD CELL COUNT 4.09 x10^6/uL (4.50-6.00); WHITE BLOOD CELL COUNT,WBC 6.7 10^3/uL (4.0-11.0)
[2024-02-02 22:27] LABS: APPEARANCE,URINE CLEAR (CLEAR); BILIRUBIN,URINE NEGATIVE (NEGATIVE); COLOR,URINE YELLOW (YELLOW); GLUCOSE,URINE NEGATIVE (NEGATIVE); KETONES,URINE NEGATIVE (NEGATIVE); LEUKOCYTE ESTERASE,URINE NEGATIVE (NEGATIVE); NITRITE,URINE NEGATIVE (NEGATIVE); OCCULT BLOOD,URINE TRACE-INTACT (NEGATIVE); PH,URINE 6.5 (4.5-8.0); PROTEIN,URINE NEGATIVE (NEGATIVE)
[2024-02-02] MEDS: Sodium Chloride 0.9% 1,000 ML IV ONE (22:27)
[2024-02-02 22:42] LABS: RBC,URINE 0-5 /HPF (0-5); WBC,URINE 0-5 /HPF (0-5)
== END 2024-02-03 00:41 | disposition home or self-care (01) ==
LOC: CC.ED 21:10
DX: R10.11 Right upper quadrant pain (principal); R79.89 Other specified abnormal findings of blood chemistry; E78.00 Pure hypercholesterolemia, unspecified; E11.9 Type 2 diabetes mellitus without complications; Z79.4 Long term (current) use of insulin; Z79.899 Other long term (current) drug therapy
CPT/HCPCS: 36415; 74177; 81001; 85025; 93005; 96361; 96374; 99284; J1170; J7030; Q9967; 80053; 83605; 83690; 83735; 84484

== ENCOUNTER 2024-02-03 13:07 | Emergency (ER) | payer MEDICARE ==
[2024-02-03] MEDS ORDERED: Sodium Chloride 0.9% 10 ML Syringe FLUSH PRN (13:18)
[2024-02-03 13:33] LABS: BASOPHILS ABSOLUTE AUTO 0.02 10^3/uL (0.00-0.50); BASOPHILS PERCENT AUTO 0.3 % (0-1); EOSINOPHILS ABSOLUTE AUTO 0.03 10^3/uL (0.00-1.50); EOSINOPHILS PERCENT AUTO 0.5 % (0-6); HEMATOCRIT 40.6 % (42.0-52.0); HEMOGLOBIN 13.1 g/dL (14.0-18.0); IMMATURE GRAN ABSOLUTE AUTO 0.01 10^3/uL (0.00-0.49); IMMATURE GRAN PERCENT AUTO 0.2 % (0.0-4.9); LYMPHOCYTES ABSOLUTE AUTO 1.29 10^3/uL (0.60-5.00); LYMPHOCYTES PERCENT AUTO 20.8 % (24-44); MEAN CORPUSCULAR HEMOGLOBIN 29.8 pg (27.0-32.0); MEAN CORPUSCULAR HGB CONC 32.3 g/dL (32.0-36.0); MEAN CORPUSCULAR VOLUME 92.3 fL (83.0-97.0); MONOCYTES ABSOLUTE AUTO 0.63 10^3/uL (0.00-1.50); MONOCYTES PERCENT AUTO 10.2 % (0-10); NEUTROPHILS ABSOLUTE AUTO 4.21 x10^3/uL (1.80-8.00); PLATELET COUNT,PLT 140 10^3/uL (150-400); WHITE BLOOD CELL COUNT,WBC 6.2 10^3/uL (4.0-11.0)
[2024-02-03] MEDS: Morphine 2 MG/ML SYRINGE IVPUSH ONE (13:45)
[2024-02-03] MEDS: Ondansetron 4 MG/2 ML SDV IVPUSH STA (13:45)
[2024-02-03 13:50] LABS: ALBUMIN 3.2 g/dL (3.4-5.0); ALKALINE PHOSPHATASE 244 U/L (46-116); BILIRUBIN TOTAL 3.7 mg/dL (0.0-1.0); BLOOD UREA NITROGEN,BUN 17 mg/dL (7-18); CALCIUM 8.9 mg/dL (8.4-10.1); CARBON DIOXIDE,CO2 28 mmol/L (21-32); CHLORIDE,CL 102 mEq/L (98-106); CREATININE 0.9 mg/dL (0.7-1.3); GLUCOSE RANDOM 211 mg/dL (75-99); LIPASE 9 U/L (16-77); POTASSIUM,K 3.7 mEq/L (3.5-5.0); PROTEIN TOTAL,TP 6.8 g/dL (6.4-8.2); SODIUM,NA 139 mEq/L (136-145)
[2024-02-03 13:53] LABS: LACTIC ACID 1.3 mmol/L (0.4-2.0)
[2024-02-03 14:00] LABS: C-REACTIVE PROTEIN < 0.50 mg/dL (<=0.50); ESTIMATED GFR 91 mL/min (>=60)
[2024-02-03 14:01] LABS: ALANINE AMINOTRANSFERASE,ALT 494 U/L (12-78); ASPARTATE AMNIOTRANSFERASE,AST 580 U/L (15-37)
[2024-02-03] MEDS: Sodium Chloride 0.9% 1,000 ML IV ONE ×2 (15:05→17:06)
[2024-02-03] MEDS ORDERED: Sodium Chloride 0.9% 1,000 ML IV SCH (17:15)
== END 2024-02-03 17:40 ==
LOC: CC.ED 13:07
DX: K80.63 Calculus of gallbladder and bile duct with acute cholecystitis with obstruction (principal); K72.00 Acute and subacute hepatic failure without coma; E78.00 Pure hypercholesterolemia, unspecified; E11.9 Type 2 diabetes mellitus without complications; Z90.49 Acquired absence of other specified parts of digestive tract; Z79.899 Other long term (current) drug therapy; Z79.4 Long term (current) use of insulin
CPT/HCPCS: 36415; 80053; 83605; 83690; 85025; 86140; 96361; 96374; 96375; 99285-25; J2270; J2405; J7030